=== PATIENT | male | born 1980 | race Caucasian/White ===

== ENCOUNTER → 2016-03-14 | Day surgery (SDC) | payer BC ==
[2016-03-07 10:59] VITALS: Ht 182.9 cm; Wt 93.2 kg
[~2016-03-14] VITALS: Ht 182.9 cm; Wt 93.2 kg
[~2016-03-14] MED LIST: ATROPINE SULFATE 0.1 MG/ML 5ML SYR IV PRN; BUPIVACAINE/EPINEPHRINE 0.5% MPF 1:200,000 30 ML VIAL ONE; EpHEDrine SULFATE INJ 50 MG/ML AMP IV PRN; FENTANYL CITRATE INJ 50 MCG/1 ML 2 ML VIAL IV PRN; FENTANYL CITRATE INJ 50 MCG/1 ML 2 ML VIAL ONE; FLAX12003; HYDR-5688 PO; HYDROCODONE/ACETAMOPHEN 5/325MG TAB PO PRN; HYDROmorphone INJ 1 MG/ML SYR IV PRN; KETAMINE HCL INJ 50 MG/ML 10 ML VIAL ONE; LACTATED RINGER'S 1000ML 1,000 ML IV SCH; LIDOCAINE HCL 2% 2 ML VIAL (20MG/ML) ONE; MIDAZOLAM HCL 1 MG/ML 2ML VIAL ONE; MULT-1027; MoRPHine SULFATE 2 MG/ML CARP IV PRN; ONDANSETRON INJ 2 MG/ML 2 ML VIAL IV PRN; PROPOFOL IV EMULSION 10 MG/ML 20 ML VIAL IV ONE
--- NOTE | 2016-03-14 09:02 | History and Physical: Surg Cnt ---
History & Physical Date Mar 14, 2016. Chief Complaint mass right scapular area History of Present Illness lump increasing in size back Additional History Hepatic Disease: No Endocrine Disorder: No Kidney Disease: No Hypertension: No Heart Disease: No Bleeding Tendencies: No Infectious Diseases: No Allergies Coded Allergies: No Known Allergies (Unverified , 03/14/16) Home Medications Miscellaneous Medications Flaxseed (Linseed) (Flaxseed Oil) Multiple Vitamin (Multi Vitamin) Social History Smoking Status: Former Smoker Physical Examination Skin: warm/dry, no rash Head: normocephalic, atraumatic Neck: supple, no adenopathy, trachea midline Respiratory/Chest: lungs clear, normal breath sounds, no respiratory distress Cardiovascular: regular rate, rhythm, no edema, no murmur Abdomen / GI: normal bowel sounds, non tender Back: + pertinent finding (5 cm soft tissue mass right scapular area likely lipoma possible elastoma(per location)) Extremities: normal inspection, normal range of motion Neurologic/Psych: no motor/sensory deficits, alert, normal reflexes, oriented x 3 Operation excision soft tissue mass right scapular area
--- NOTE | 2016-03-14 09:33 | Discharge Instructions ---
Discharge Instructions Visit Reason for Visit: Epidermoid Cyst Discharge Discharge Diagnosis / Problem: excision cyst Activity Recommendations Activity Limitations: per Instructions/Follow-up section Shower/Bathe: tomorrow Driving or Machine Use: do not drive if taken [place] Anesthesia . Post Anesthesia Instructions: If you have had General Anesthesia or IV Sedation: * Do not drive today. * Resume driving when surgeon permits. * Do not make important decisions or sign legal documents today. * Call surgeon for: 1. Temperature elevations greater than 101 degrees F. 2. Uncontrollable pain. 3. Excessive bleeding. 4. Persistent nausea and vomiting. 5. Medication intolerance (nausea, vomiting or rash). * For nausea and vomiting use only clear liquids such as: tea, soda, bouillon until nausea subsides, then gradually increase diet as tolerated. * If you have any concerns or questions, call your surgeon's office. If physician is unavailable and it is an emergency, call 911 or go to the nearest emergency room. . Instructions / Follow-Up Instructions / Follow-Up Dr. Quintero in 1 week, call [phone] Diet Recommendations Recommended Home Diet: no limitations Procedures Procedures Performed: Right Scapular Area Soft Tissue Mass Excision Pending Studies Studies pending at discharge: no Medical Emergencies . Who to Call and When: Medical Emergencies: If at any time you feel your situation is an emergency, please call 911 immediately. . Non-Emergent Contact Non-Emergency issues call your: Surgeon Call Non-Emergent contact if: you have a fever, temperature is above 101.5, your pain is not controlled, your pain is worsening, wound has increased redness , wound has increased pain . . "Provider Documentation" section prepared by Levi Galaviz.
--- NOTE | 2016-03-14 09:44 | [facility] Post Operative Brief Note ---
Immediate Operative Summary Operative Date Mar 14, 2016. Pre-Operative Diagnosis Right Scapular Area Soft Tissue Mass Post-Operative Diagnosis same Procedure(s) Performed Right Scapular Area Soft Tissue Mass Excision(anali 5 cm with layered closure likely lipoma) Surgeon Dr. Medina Quintero Lens Assistant Surgeon(s) 0 Estimated Blood Loss 1CC Findings soft tissue mass deep sup body fascia to muscular layer grossly lipoma anali 3-4 cm dx) Specimens A. Right Scapular Soft Tissue Mass Anesthesia .5% marcaine with epi(10cc)
[2016-03-14 10:07] VITALS: TEMP 36.6
--- NOTE | 2016-03-14 10:14 | Anesthesia Progress Nt - [facility] ---
Anesthesia Post Op Note Date & Time Mar 14, 2016 at 10:13 Vital Signs Pain Intensity: 0 Vital Signs Past 12 Hours Date Time Temp Pulse Resp B/P Pulse Ox O2 Delivery O2 Flow Rate FiO2 03/14/16 10:07 36.6 74 16 139/88 96 Room Air 03/14/16 09:45 36.6 74 16 186/81 96 Room Air 03/14/16 08:37 36.3 52 16 154/96 99 Room Air Notes Mental Status: alert / awake / arousable, participated in evaluation Pt Amnestic to Procedure: Yes Nausea / Vomiting: adequately controlled Pain: adequately controlled Airway Patency, RR, SpO2: stable & adequate BP & HR: stable & adequate Hydration State: stable & adequate Anesthetic Complications: no major complications apparent
[2016-03-14 10:28] VITALS: BP 144/87; PULSE 63; O2SAT 98
--- NOTE | 2016-03-14 10:43 | OPERATIVE REPORT ---
DATE OF OPERATION: 03/14/2016 PREOPERATIVE DIAGNOSIS: Soft tissue mass, right scapular area approximately 5 cm in size. POSTOPERATIVE DIAGNOSIS: Approximately 3-4 cm soft tissue mass subfascial to superficial body fascia to the muscular layer and the scapular area consistent with a lipoma. PROCEDURE: Excision. SURGEON: Dr. Quintero. OPERATION AND FINDINGS: SUMMARY: The patient was brought into the operating room theater in the prone position, right scapular area was prepped with Betadine solution and properly draped. We used 0.5% Marcaine with epinephrine, probably 10 mL was used to infiltrate an area above it and likely along the edge of the scapula, deepened through subcutaneous tissue. After achieving anesthetic level with IV sedation incision was made approximately 3 cm or so long, deepened through subcutaneous tissue. Cautery was used to control the vessels. Once we went in the subQ, we divided the superficial body fascia and were able to see this mass that was underneath it, it was lobulated. We freed it up from the surrounding tissue and dissected out completely was going to the prescapular muscular layer grossly consistent with lipoma, did not have any attachments similar like a stoma that goes through the scapula. It seems to be mostly in the muscular layer. Once the area was removed we checked for hemostasis and appeared satisfactory. We then closed the wound in multiple layers using 2-0 chromic for subcutaneous, [id number] 2-0 nylon for the skin edges interrupted suture. Dressing was applied. The procedure was tolerated well by the patient. Estimated blood loss 1 mL. The patient was taken to recovery room in good condition. I attest to the content of the Intraoperative Record and any orders documented therein. Any exceptio ns are noted below.
== END | disposition home or self-care (01) ==
LOC: X.SURG 08:21
PROVIDERS: ATTEND Surgery
DX: R22.2 Localized swelling, mass and lump, trunk (principal); Z87.891 Personal history of nicotine dependence; E78.00 Pure hypercholesterolemia, unspecified; Z90.89 Acquired absence of other organs; G47.33 Obstructive sleep apnea (adult) (pediatric)